=== PATIENT | female | born 1970 | race Caucasian/White ===

== ENCOUNTER → 2016-12-20 | Outpatient (CLI) | payer OTHER | LOC: US 07:55 | DX: R74.8 Abnormal levels of other serum enzymes (principal); R16.0 Hepatomegaly, not elsewhere classified; K76.0 Fatty (change of) liver, not elsewhere classified | CPT/HCPCS: 76705 ==

== ENCOUNTER → 2021-02-24 | Outpatient (CLI) | payer OTHER ==
[~2021-02-24] MED LIST: ATORVASTATIN CA20 MG PO; BUSPIRONE HCL7.5 MG PO; COLACE 100MG C100 MG PO; HYDROXYZINE HCL25 MG PO; LISINOPRIL-HCT1 EAC1 PO; METFORMIN HCL500 MG PO; NORCO 7.5-3251 EACH PO; PREVACID PO
== END ==
LOC: CT 08:57
DX: R10.9 Unspecified abdominal pain (principal); K76.0 Fatty (change of) liver, not elsewhere classified; N20.0 Calculus of kidney; N83.202 Unspecified ovarian cyst, left side; N83.201 Unspecified ovarian cyst, right side
CPT/HCPCS: Q9967